=== PATIENT | male | born 1990 | race Hispanic/Latino ===

== ENCOUNTER 2017-10-12 19:57 | Emergency (ER) | payer OTHER ==
[2017-10-12 20:07] VITALS: BMI 28.1
[2017-10-12 20:11] VITALS: BP 113/68; PULSE 76; RESP 18; TEMP 98; O2SAT 95
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
== END 2017-10-12 21:40 | disposition home or self-care (01) ==
LOC: H.ER 19:57
DX: S09.90XA Unspecified injury of head, initial encounter (principal); S19.9XXA Unspecified injury of neck, initial encounter; Y04.0XXA Assault by unarmed brawl or fight, initial encounter; Y92.89 Other specified places as the place of occurrence of the external cause; F10.10 Alcohol abuse, uncomplicated